=== PATIENT | male | born 1965 | race Caucasian/White ===

== ENCOUNTER 2016-09-18 06:49 | Inpatient (IN) | payer OTHER ==
[~2016-09-18] VITALS: Ht 162.6 cm; Wt 105.3 kg
[2016-09-18 10:06] VITALS: BP 130/76; RESP 20
[2016-09-18] MEDS ORDERED: ACETAMINOPHEN 650 MG SUPP PR PRN (11:00)
[2016-09-18] MEDS ORDERED: ACETAMINOPHEN 325 MG TAB PO PRN (11:00)
[2016-09-18] MEDS ORDERED: BISACODYL 10 MG SUPP PR PRN (11:00)
[2016-09-18] MEDS ORDERED: morphine 2 MG INJ IV PRN (11:00)
[2016-09-18] MEDS ORDERED: HYDROCODONE/APAP (5/325) TAB PO PRN ×2 (11:00)
[2016-09-18] MEDS ORDERED: NACL 0.9% 3 ML SYG IV SCH (11:00)
[2016-09-18] MEDS ORDERED: MAGNESIUM HYDROXIDE 30ML CUP PO PRN (11:00)
[2016-09-18] MEDS ORDERED: DOCUSATE SODIUM 100 MG CAP PO PRN (11:00)
--- NOTE | 2016-09-18 11:13 | HP ---
Date/Time of Note Date/Time of Note DATE: 09/18/16 TIME: 11:07 Assessment/Plan VTE Prophylaxis VTE Prophylaxis Intervention: SCD's Assessment/Plan Chief Complaint/Hosp Course Impression and plan 1. Cholelithiasis with suspected cholecystitis. Surgeon to be consulted. continue IV hydration and analgesics as needed 2. Diabetes. Follow-up on A1c. Will start on insulin regimen. 3. Obesity. Weight reduction advised 4. Liver cirrhosis. Monitor LFT. Patient to be followed up as outpatient for this issue. Admission process 40 minutes Discussed plan of care with Dr. Dunham Problems: HPI/ROS Admit Date/Time Admit Date/Time Sep 18, 2016 at 09:15 Hx of Present Illness This is a 51-year-old male with past medical history of diabetes who came to [facility] due to reports of abdominal pain. Patient initially brought to the [facility] but brought to [facility] due to insurance issues. According to the patient had been having abdominal pain for 3 days duration. Pain was more on right upper abdominal quadrant nonradiating. Denies any dysuria associated with it. Denies any nausea or vomiting. He does report he does have some pain on palpation of his right upper quadrant abdominal area. He denies any sick contacts. On further evaluation at the hospital he did have initial lab findings at [place] with noted no leukocytosis. He remained afebrile. CT scan of his abdomen did show findings suspicious for hepatic cirrhosis with irregular border of the liver and splenomegaly suspicious for portal hypertension. He also had slightly prominent retroperitoneal lymph nodes measuring up to 1.3 cm. Further abdominal ultrasound did show him to have gallstones with sludge as well as thickening of the gallbladder with findings suspicious for possible cholecystitis. Currently the patient remains alert and oriented. He does still report having some right abdominal pain more in upper quadrants. We will evaluate him for the aformentiond she is ROS 12 point review of systems obtained and entirely negative except as mentioned in history of present illness PMH/Family/Social Past Medical History Medical/surgical history 1. Diabetes Family History Significant Family History: no pertinent family hx Social History Alcohol Use: none Smoking Status: Light tobacco smoker Drug Use: none Exam/Review of Systems Vital Signs Vitals Vital Signs Date Time Temp Pulse Resp B/P Pulse Ox O2 Delivery O2 Flow Rate FiO2 09/18/16 10:06 97.6 77 20 130/76 96 Exam Exam General: In some mild distress secondary to abdominal pain Eyes: [pupils equal round, Anicteric sclera] Neck: Supple nontender, no JVD Cardiac: [S1, S2 auscultated, regular rhythm and rate] Pulmonary: [No coarse rhonchi or breathing auscultated] GI: Tender upon palpation on right upper abdominal quadrant. Bowel sounds active. Extremities: [No edema bilateral lower extremities] Skin: Psoriatic skin noted on bilateral lower extremities Neurologic: [Alert to person place and time and situation] Medications Medications Current Medications Piperacillin Sod/ Tazobactam Sod 100 ml @ 200 mls/hr Q8 IVPB ; Start 09/18/16 at 14:00; Status UNV Potassium Chloride/Dextrose/ Sod Cl (D5-1/2ns + KCl 20 Meq) 1,000 ml @ 80 mls/ hr [id number] IV ; Start 09/18/16 at 10:53; Status UNV Acetaminophen (Tylenol Tab) 650 mg Q6H PRN PO PAIN LEVEL 1-3 OR FEVER; Start at 11:00; Status UNV Acetaminophen (Tylenol Supp) 650 mg Q6H PRN [place] PAIN LEVEL 1-3 OR FEVER; Start 09/18/16 at 11:00; Status UNV Acetaminophen/ Hydrocodone Bitart ([place] (5/325)) 1 tab Q6H PRN PO MODERATE PAIN LEVEL 4-6; Start 09/18/16 at 11:00; Status UNV Acetaminophen/ Hydrocodone Bitart ([place] (5/325)) 2 tab Q6H PRN PO SEVERE PAIN LEVEL 7-10; Start 09/18/16 at 11:00; Status UNV Morphine Sulfate (morphine) 2 mg Q4H PRN IV SEVERE PAIN LEVEL 7-10; Start 09/18 at 11:00; Status UNV Docusate Sodium (Colace) 100 mg Q12H PRN PO CONSTIPATION; Start 09/18/16 at 11: 00; Status UNV Magnesium Hydroxide (Milk Of Mag) 30 ml DAILY PRN PO CONSTIPATION; Start at 11:00; Status UNV Bisacodyl (Dulcolax Supp) 10 mg DAILY PRN [place] CONSTIPATION; Start 09/18/16 at 11 :00; Status UNV Pantoprazole (Protonix Iv) 40 mg DAILY@06 IV ; Start 09/19/16 at 06:00; Status UNV BIBI MCGRATH Sep 18, 2016 11:13
[2016-09-18 12:01] LABS: BASOPHILS % 0.2 % (0.0-2.0); EOSINOPHILS % 0.9 % (0.0-7.0); HEMATOCRIT 39.7 % (42.0-52.0); HEMOGLOBIN 13.9 g/dl (14.0-18.0); LYMPHOCYTES % 17.4 % (15.0-51.0); MEAN CORPUSCULAR HEMOGLOBIN 32.9 pg (29.0-33.0); MEAN CORPUSCULAR HGB CONC 35.1 g/dl (32.0-37.0); MEAN CORPUSCULAR VOLUME 93.8 fl (82.0-101.0); MONOCYTE # 0.5 10^3/ul (0.3-0.9); MONOCYTES % 9.4 % (0.0-11.0); NEUTROPHIL # 4.1 10^3/ul (1.6-7.5); NEUTROPHILS % 72.1 % (39.0-77.0); PLATELET COUNT 80 10^3/UL (140-440); RED BLOOD COUNT 4.23 10^6/ul (4.70-6.10); RED CELL DISTRIBUTION WIDTH 14.1 % (11.5-14.5); UNCORRECTED WBC 5.7 10^3/ul (4.8-10.8); WHITE BLOOD COUNT 5.7 10^3/ul (4.8-10.8)
[2016-09-18 12:08] LABS: CONDITION 1
[2016-09-18] MEDS: D5W-0.45 NACL + KCL 20 MEQ 1,000 ML IV SCH ×2 (13:23→23:23)
[2016-09-18] MEDS: PANTOPRAZOLE 40 MG INJ IV SCH (13:37)
[2016-09-18] MEDS: PIPER-TAZO 3.375 GM IV (PMX) 100 ML IVPB SCH ×2 (13:37→21:14)
--- NOTE | 2016-09-18 14:06 | CONS ---
DATE OF ADMISSION: 09/18/2016 DATE OF CONSULTATION: 09/18/2016 REASON FOR CONSULTATION: Possible cholecystitis. HISTORY OF PRESENT ILLNESS: The patient is a 51-year-old diabetic male who was transferred here fro [facility] for insurance reasons. He presents with 3 days of right upper quadrant and ri ght flank abdominal pain. This is not associated with nausea or vomiting. The pain is not post-pra ndial. Imaging at [place] showed hepatic cirrhosis with splenomegaly suspicious for portal hyper tension. He had some edematous change in the right upper quadrant. The gallbladder showed a gallsto ne without pericholecystic fluid. He is admitted, and surgical consultations is requested for possi ble cholecystitis. PAST MEDICAL HISTORY: Patient has had no previous abdominal surgeries. Comorbid conditions include diabetes and morbid obesity. REVIEW OF SYSTEMS: HEAD, EARS, EYES, NOSE, THROAT: Unremarkable. LUNGS: No history of shortness of breath or pneumonia. CARDIAC: No history of chest pain, NH, or arrhythmia. ABDOMEN: As in the HPI. EXTREMITIES: Unremarkable. MEDICATIONS: Outpatient medications, none. ALLERGIES: NONE. SOCIAL HISTORY: Patient states he has not had alcohol in over 25 years. PHYSICAL EXAMINATION: GENERAL: The patient is a morbidly obese 51-year-old [place] speaking male, who is awake and alert, in no acute distress. HEENT: Within normal limits. Sclerae anicteric. LUNGS: Clear. HEART: Regular rhythm. ABDOMEN: Obese. There is some tenderness in the right lateral abdomen between the right upper quad rant and the right flank. There are no masses. There is a tiny umbilical hernia. EXTREMITIES: Unremarkable. LABORATORY DATA: Here shows a hematocrit of 39.7 with a white count of 5700. LFTs are pending. IMPRESSION: It does not appear that this patient has acute cholecystitis, but more likely portal hy pertension with cirrhosis and splenomegaly. PLAN: A HIDA scan has been ordered. GI consultation should be sought. I will follow with you. Fu rther recommendations will be based on the patient's further workup and clinical course. Dictated By: DEAN WISE/NTS Conf#: [id number] DID#: [id number]
[2016-09-18 20:09] VITALS: BP 142/66; RESP 16
[2016-09-19] MEDS: D5W-0.45 NACL + KCL 20 MEQ 1,000 ML IV SCH ×2 (02:40→18:08)
[2016-09-19] MEDS: PIPER-TAZO 3.375 GM IV (PMX) 100 ML IVPB SCH ×3 (06:04→21:36)
[2016-09-19] MEDS: PANTOPRAZOLE 40 MG INJ IV SCH (06:04)
[2016-09-19 06:06] LABS: POTASSIUM 4.4 mmol/L (3.5-5.1)
[2016-09-19 06:08] LABS: ALBUMIN/GLOBULIN RATIO 0.83; BILIRUBIN,INDIRECT 1.1 mg/dl (0-1.1); BILIRUBIN,TOTAL 1.1 mg/dl (0.2-1.3); CALCIUM 8.4 mg/dl (8.4-10.2); CREATININE 0.55 mg/dl (0.61-1.24); TOTAL PROTEIN 6.6 g/dl (6.1-8.1)
[2016-09-19 06:09] LABS: CHOL/HDL RATIO 3.8 RATIO; MAGNESIUM 1.7 mg/dl (1.7-2.5)
[2016-09-19 06:24] LABS: T3 UPTAKE 34.9 % (23.5-40.5)
[2016-09-19 06:38] LABS: THYROID STIMULATING HORMONE 0.649 MIU/L (0.465-4.680)
[2016-09-19 06:47] LABS: BASOPHILS % 0.2 % (0.0-2.0); EOSINOPHILS # 0.1 10^3/ul (0.0-0.5); EOSINOPHILS % 1.4 % (0.0-7.0); HEMATOCRIT 39.8 % (42.0-52.0); HEMOGLOBIN 13.8 g/dl (14.0-18.0); LYMPHOCYTES # 1.3 10^3/ul (0.8-2.9); LYMPHOCYTES % 19.8 % (15.0-51.0); MEAN CORPUSCULAR HEMOGLOBIN 32.9 pg (29.0-33.0); MEAN CORPUSCULAR HGB CONC 34.7 g/dl (32.0-37.0); MEAN CORPUSCULAR VOLUME 94.9 fl (82.0-101.0); MEAN PLATELET VOLUME 10.3 fl (7.4-10.4); MONOCYTE # 0.5 10^3/ul (0.3-0.9); MONOCYTES % 7.3 % (0.0-11.0); NEUTROPHIL # 4.7 10^3/ul (1.6-7.5); NEUTROPHILS % 71.3 % (39.0-77.0); PLATELET COUNT 94 10^3/UL (140-440); RED CELL DISTRIBUTION WIDTH 13.9 % (11.5-14.5); UNCORRECTED WBC 6.5 10^3/ul (4.8-10.8); WHITE BLOOD COUNT 6.5 10^3/ul (4.8-10.8)
[2016-09-19 06:52] LABS: CONDITION 1
[2016-09-19] MEDS ORDERED: GLUCAGON 1 MG INJ IM PRN (08:30)
[2016-09-19] MEDS ORDERED: GLUCOSE GEL 15 GRAM TUBE BUCCAL PRN (08:30)
[2016-09-19] MEDS ORDERED: DEXTROSE 50% 50 ML SYRINGE IV PRN ×2 (08:30)
[2016-09-19] MEDS ORDERED: GLUCOSE GEL 15 GRAM TUBE PO PRN ×2 (08:30)
[2016-09-19 10:00] VITALS: BP 120/77; PULSE 84; RESP 20
[2016-09-19] MEDS: INSULIN ASPART [NOVOLOG] 3 ML PEN SC SCH ×3 (12:15→21:00)
--- NOTE | 2016-09-19 15:16 | PN ---
Date/Time of Note Date/Time of Note DATE: 09/19/16 TIME: 15:10 Assessment/Plan VTE Prophylaxis VTE Prophylaxis Intervention: SCD's Lines/Catheters IV [facility]from [facility] Peripheral IV Urinary Cath still in place: No Assessment/Plan Chief Complaint/Hosp Course Impression and plan 1. Cholelithiasis with suspected cholecystitis. surgeon following. continue IV hydration and analgesics as needed. Await HIDA scan result 2. Diabetes. A1C: 8.6. cont insulin regimen 3. Obesity. Weight reduction advised 4. Liver cirrhosis. Monitor LFT. GI to follow Patient to be followed up as outpatient for this issue. DISPO/PLAN: plan for hida scan. follow up with results Discussed plan of care with Dr. Conrad Problems: Subjective 24 Hr Interval Summary Free Text/Dictation still reports having some right flank pain. Exam/Review of Systems Vital Signs Vitals Vital Signs Date Time Temp Pulse Resp B/P Pulse Ox O2 Delivery O2 Flow Rate FiO2 09/19/16 10:00 98.5 84 20 120/77 96 Room Air Intake and Output 09/18/16 09/18/16 09/19/16 15:00 23:00 07:00 Intake Total 100 ml 1480 ml Output Total 0 ml 200 ml Balance 100 ml 1280 ml Exam General: In some mild distress secondary to abdominal pain Eyes: [pupils equal round, Anicteric sclera] Neck: Supple nontender, no JVD Cardiac: [S1, S2 auscultated, regular rhythm and rate] Pulmonary: [No coarse rhonchi or breathing auscultated] GI: Tender upon palpation on right upper abdominal quadrant. Bowel sounds active. Extremities: [No edema bilateral lower extremities] Skin: Psoriatic skin noted on bilateral lower extremities Neurologic: [Alert to person place and time and situation] Results Result Diagram: 09/19/16 0506 09/19/16 0506 Results 24 hrs Laboratory Tests Test 09/19/16 05:06 09/19/16 12:05 Alanine Aminotransferase (ALT/SGPT) 47 Albumin 3.0 L Albumin/Globulin Ratio 0.83 Alkaline Phosphatase 170 H Anion Gap 13 Aspartate Amino Transf (AST/SGOT) 39 Basophils # 0.0 Basophils % 0.2 Blood Morphology Comment Blood Urea Nitrogen 8 Calcium Level 8.4 Carbon Dioxide Level 27 Chloride Level 104 Cholesterol Level 124 Cholesterol/HDL Ratio 3.8 Creatinine 0.55 L Direct Bilirubin 0.00 Eosinophils # 0.1 Eosinophils % 1.4 Free Thyroxine Index 2.93 Globulin 3.60 H Glucose Level 145 HDL Cholesterol 32 Hematocrit 39.8 L Hemoglobin 13.8 L Hemoglobin A1c 8.6 H Indirect Bilirubin 1.1 LDL Cholesterol, Calculated 73 Lymphocytes # 1.3 Lymphocytes % 19.8 Magnesium Level 1.7 Mean Corpuscular Hemoglobin 32.9 Mean Corpuscular Hemoglobin Concent 34.7 Mean Corpuscular Volume 94.9 Mean Platelet Volume 10.3 Monocytes # 0.5 Monocytes % 7.3 Neutrophils # 4.7 Neutrophils % 71.3 Nucleated Red Blood Cells # 0.0 Nucleated Red Blood Cells % 0.0 Platelet Count 94 L Potassium Level 4.4 Red Blood Count 4.20 L Red Cell Distribution Width 13.9 Sodium Level 140 Thyroid Stimulating Hormone (TSH) 0.649 Thyroxine (T4) 8.4 Total Bilirubin 1.1 Total Protein 6.6 Triglycerides Level 94 Triiodothyronine (T3) Uptake 34.9 White Blood Count 6.5 Bedside Glucose 116 Medications Medications Current Medications Piperacillin Sod/ Tazobactam Sod 100 ml @ 200 mls/hr Q8 IVPB Last administered on 09/19/16 06:04; Admin Dose 200 MLS/HR; Start 09/18/16 at 12:45 Potassium Chloride/Dextrose/ Sod Cl (D5-1/2ns + KCl 20 Meq) 1,000 ml @ 80 mls/ hr [id number] IV Last administered on 09/19/16 02:40; Admin Dose 80 MLS/HR; Start 09/18/16 at 10:53 Acetaminophen (Tylenol Tab) 650 mg Q6H PRN PO PAIN LEVEL 1-3 OR FEVER; Start at 11:00 Acetaminophen (Tylenol Supp) 650 mg Q6H PRN [place] PAIN LEVEL 1-3 OR FEVER; Start 09/18/16 at 11:00 Acetaminophen/ Hydrocodone Bitart ([place] (5/325)) 1 tab Q6H PRN PO MODERATE PAIN LEVEL 4-6; Start 09/18/16 at 11:00 Acetaminophen/ Hydrocodone Bitart ([place] (5/325)) 2 tab Q6H PRN PO SEVERE PAIN LEVEL 7-10; Start 09/18/16 at 11:00 Morphine Sulfate (morphine) 2 mg Q4H PRN IV SEVERE PAIN LEVEL 7-10; Start 09/18 at 11:00 Docusate Sodium (Colace) 100 mg Q12H PRN PO CONSTIPATION; Start 09/18/16 at 11: 00 Magnesium Hydroxide (Milk Of Mag) 30 ml DAILY PRN PO CONSTIPATION; Start at 11:00 Bisacodyl (Dulcolax Supp) 10 mg DAILY PRN [place] CONSTIPATION; Start 09/18/16 at 11 :00 Pantoprazole (Protonix Iv) 40 mg DAILY@06 IV Last administered on 09/19/16t 06: 04; Admin Dose 40 MG; Start 09/18/16 at 13:00 Diagnostic Test (Pha) (Accucheck) 1 ea 02 XX ; Start 09/20/16 at 02:00 Miscellaneous Information 1 ea NOTE XX ; Start 09/19/16 at 08:30 Glucose (Glutose) 15 gm Q15M PRN PO DECREASED GLUCOSE; Start 09/19/16 at 08:30 Glucose (Glutose) 22.5 gm Q15M PRN PO DECREASED GLUCOSE; Start 09/19/16 at 08: 30 Dextrose (D50w Syringe) 25 ml Q15M PRN IV DECREASED GLUCOSE; Start 09/19/16 at 08:30 Dextrose (D50w Syringe) 50 ml Q15M PRN IV DECREASED GLUCOSE; Start 09/19/16 at 08:30 Glucagon (Glucagen) 1 mg Q15M PRN IM DECREASED GLUCOSE; Start 09/19/16 at 08:30 Glucose (Glutose) 15 gm Q15M PRN BUCCAL DECREASED GLUCOSE; Start 09/19/16 at 08 :30 BIBI MCGRATH Sep 19, 2016 15:16
[2016-09-19 17:09] LABS: ADD UMIC NO; URINE BILIRUBIN (Dip) NEGATIVE (NEGATIVE); URINE BLOOD (Dip) NEGATIVE (NEGATIVE); URINE COLOR LT. YELLOW (YELLOW); URINE GLUCOSE (Dip) NEGATIVE (NEGATIVE); URINE KETONES (Dip) NEGATIVE (NEGATIVE); URINE LEUKOCYTE ESTERASE (Dip) NEGATIVE (NEGATIVE); URINE NITRITE (Dip) NEGATIVE (NEGATIVE); URINE TOTAL PROTEIN (Dip) NEGATIVE (NEGATIVE); URINE UROBILINOGEN (Dip) 4.0 E.U./dL (0.1-1.0)
--- NOTE | 2016-09-19 17:32 | RADRPT ---
PROCEDURE: Nuclear medicine hepatobiliary scan CLINICAL INDICATION: Right upper quadrant pain. TECHNIQUE: 8.3 mCi of technetium-99m Choletec was administered intravenously. Planar imaging of t he hepatobiliary system was performed. Delayed images were obtained. Images were reviewed on the h igh resolution PACS workstation. COMPARISON: None available FINDINGS: There is normal and homogeneous uptake throughout the hepatobiliary system. There is normal emptyin g of radiotracer into the biliary tract. The common bile duct is normal. The gallbladder is visual ized at 15 minutes. There is visualization of the small bowel at 35 minutes. IMPRESSION: 1. Negative hepatobiliary scan. There is normal filling of the gallbladder. 2. Patent common bile duct with normal visualization of the small bowel. RPTAT: HMJB .Rafael Ramirez MD, MD Date Time Electronically viewed and signed by .Rafael Ramirez MD, MD on 09/19/2016 17:31 .B/
--- NOTE | 2016-09-19 17:52 | PN ---
DATE: 09/19/2016 The patient is symptomatically improved. His white blood cell count is normal without left shift. HIDA scan has been completed and the results are pending. IMPRESSION: If HIDA scan negative the patient can be discharged with outpatient followup. Dictated By: DEAN WISE/SYDNEE Conf#: [id number] DID#: [id number]
--- NOTE | 2016-09-19 17:54 | CONS ---
Date/Time of Note Date/Time of Note DATE: 09/19/16 TIME: 17:45 Assessment/Plan Assessment/Plan Chief Complaint/Hosp Course Impression: 1. possible cirrhosis 2. gallstones, r/o CBD stone 3. cholecystitis Recommendations 1. check MRCP to r/o CBD stone. If no CBD stone then recommend cholecystectomy per surgery 2. MRCP can also assess liver contour 3. agree with HIDA scan but I do not see it ordered. I informed TELECOM NETWORK MANAGER Carl about this. 4. acute hepatitis panel to r/o viral hepatitis 5. Dr. Ovalles to resume care of this patient tomorrow. Problems: Consultation Date/Type/Reason Admit Date/Time Sep 18, 2016 at 09:15 Type of Consultation: GI Reason for Consultation r/o cirrhosis, r/o cbd stone, abdominal pain Hx of Present Illness 51-year-old male with past medical history of diabetes who is admittted to [facility] due to reports of abdominal pain. Patient initially brought to the [facility] but brought to [facility] due to insurance issues. According to the patient had been having abdominal pain for 3 days duration. Pain was more on right upper abdominal quadrant nonradiating. Denies any dysuria associated with it. Denies any nausea or vomiting. He does report he does have some pain on palpation of his right upper quadrant abdominal area. He denies any sick contacts. Reportedly as documetned by ROBINSON Nunez, he had CT scan of his abdomen did show findings suspicious for hepatic cirrhosis with irregular border of the liver and splenomegaly suspicious for portal hypertension. However, patient denied that he had CT scan done, only abdominal u/s. He also had slightly prominent retroperitoneal lymph nodes measuring up to 1.3 cm. Further abdominal ultrasound did show him to have gallstones with sludge as well as thickening of the gallbladder with findings suspicious for possible cholecystitis. No f, c, cp, sob. All point ROS administered, pertinent positives and negatives in HPI otherwise negative. Past Medical History Medical History: diabetes, gallstones Past Surgical History Past Surgical Hx: no surgical history Family History Significant Family History: no pertinent family hx Social History Alcohol Use: sober Smoking Status: Light tobacco smoker Drug Use: none Exam/Review of Systems Vital Signs Vitals Vital Signs Date Time Temp Pulse Resp B/P Pulse Ox O2 Delivery O2 Flow Rate FiO2 09/19/16 10:00 98.5 84 20 120/77 96 Room Air Intake and Output 09/18/16 09/18/16 09/19/16 15:00 23:00 07:00 Intake Total 100 ml 1480 ml Output Total 0 ml 200 ml Balance 100 ml 1280 ml Exam Constitutional: alert, oriented, well developed Psych: nl mood/affect, no complaints Head: atraumatic, normocephalic Eyes: EOMI, nl conjunctiva, nl lids, nl sclera ENMT: mucosa pink and moist, nl external ears & nose, nl lips & teeth, nl nasal mucosa & septum Neck: non-tender, supple Respiratory: clear to auscultation, normal air movement Cardiovascular: nl pulses, regular rate and rhythm Gastrointestinal: bowel sounds, non-tender, soft Musculoskeletal: nl extremities to inspection, nl gait and stance Neurological: nl mental status, nl speech, nl strength Results Result Diagram: 09/19/16 0506 09/19/16 0506 Results 24 hrs Laboratory Tests Test 09/19/16 05:06 09/19/16 12:05 09/19/16 16:45 09/19/16 17:13 Alanine Aminotransferase (ALT/SGPT) 47 Albumin 3.0 L Albumin/Globulin Ratio 0.83 Alkaline Phosphatase 170 H Anion Gap 13 Aspartate Amino Transf (AST/SGOT) 39 Basophils # 0.0 Basophils % 0.2 Blood Morphology Comment Blood Urea Nitrogen 8 Calcium Level 8.4 Carbon Dioxide Level 27 Chloride Level 104 Cholesterol Level 124 Cholesterol/HDL Ratio 3.8 Creatinine 0.55 L Direct Bilirubin 0.00 Eosinophils # 0.1 Eosinophils % 1.4 Free Thyroxine Index 2.93 Globulin 3.60 H Glucose Level 145 HDL Cholesterol 32 Hematocrit 39.8 L Hemoglobin 13.8 L Hemoglobin A1c 8.6 H Indirect Bilirubin 1.1 LDL Cholesterol, Calculated 73 Lymphocytes # 1.3 Lymphocytes % 19.8 Magnesium Level 1.7 Mean Corpuscular Hemoglobin 32.9 Mean Corpuscular Hemoglobin Concent 34.7 Mean Corpuscular Volume 94.9 Mean Platelet Volume 10.3 Monocytes # 0.5 Monocytes % 7.3 Neutrophils # 4.7 Neutrophils % 71.3 Nucleated Red Blood Cells # 0.0 Nucleated Red Blood Cells % 0.0 Platelet Count 94 L Potassium Level 4.4 Red Blood Count 4.20 L Red Cell Distribution Width 13.9 Sodium Level 140 Thyroid Stimulating Hormone (TSH) 0.649 Thyroxine (T4) 8.4 Total Bilirubin 1.1 Total Protein 6.6 Triglycerides Level 94 Triiodothyronine (T3) Uptake 34.9 White Blood Count 6.5 Bedside Glucose 116 103 Urine Bilirubin NEGATIVE Urine Clarity CLEAR Urine Color LT. YELLOW Urine Glucose NEGATIVE Urine Hemoglobin NEGATIVE Urine Ketones NEGATIVE Urine Leukocyte Esterase NEGATIVE Urine Nitrite NEGATIVE Urine Specific [place] 1.010 Urine Total Protein NEGATIVE Urine Urobilinogen 4.0 E.U./dL H Urine pH 7.0 Medications Medications Current Medications Piperacillin Sod/ Tazobactam Sod 100 ml @ 200 mls/hr Q8 IVPB Last administered on 09/19/16 16:03; Admin Dose 200 MLS/HR; Start 09/18/16 at 12:45 Potassium Chloride/Dextrose/ Sod Cl (D5-1/2ns + KCl 20 Meq) 1,000 ml @ 80 mls/ hr [id number] IV Last administered on 09/19/16 02:40; Admin Dose 80 MLS/HR; Start 09/18/16 at 10:53 Acetaminophen (Tylenol Tab) 650 mg Q6H PRN PO PAIN LEVEL 1-3 OR FEVER; Start at 11:00 Acetaminophen (Tylenol Supp) 650 mg Q6H PRN [place] PAIN LEVEL 1-3 OR FEVER; Start 09/18/16 at 11:00 Acetaminophen/ Hydrocodone Bitart ([place] (5/325)) 1 tab Q6H PRN PO MODERATE PAIN LEVEL 4-6; Start 09/18/16 at 11:00 Acetaminophen/ Hydrocodone Bitart ([place] (5/325)) 2 tab Q6H PRN PO SEVERE PAIN LEVEL 7-10; Start 09/18/16 at 11:00 Morphine Sulfate (morphine) 2 mg Q4H PRN IV SEVERE PAIN LEVEL 7-10; Start 09/18 at 11:00 Docusate Sodium (Colace) 100 mg Q12H PRN PO CONSTIPATION; Start 09/18/16 at 11: 00 Magnesium Hydroxide (Milk Of Mag) 30 ml DAILY PRN PO CONSTIPATION; Start at 11:00 Bisacodyl (Dulcolax Supp) 10 mg DAILY PRN [place] CONSTIPATION; Start 09/18/16 at 11 :00 Pantoprazole (Protonix Iv) 40 mg DAILY@06 IV Last administered on 09/19/16t 06: 04; Admin Dose 40 MG; Start 09/18/16 at 13:00 Diagnostic Test (Pha) (Accucheck) 1 ea 02 XX ; Start 09/20/16 at 02:00 Miscellaneous Information 1 ea NOTE XX ; Start 09/19/16 at 08:30 Glucose (Glutose) 15 gm Q15M PRN PO DECREASED GLUCOSE; Start 09/19/16 at 08:30 Glucose (Glutose) 22.5 gm Q15M PRN PO DECREASED GLUCOSE; Start 09/19/16 at 08: 30 Dextrose (D50w Syringe) 25 ml Q15M PRN IV DECREASED GLUCOSE; Start 09/19/16 at 08:30 Dextrose (D50w Syringe) 50 ml Q15M PRN IV DECREASED GLUCOSE; Start 09/19/16 at 08:30 Glucagon (Glucagen) 1 mg Q15M PRN IM DECREASED GLUCOSE; Start 09/19/16 at 08:30 Glucose (Glutose) 15 gm Q15M PRN BUCCAL DECREASED GLUCOSE; Start 09/19/16 at 08 :30 DONALD PRAJAPATI MD Sep 19, 2016 17:54
[2016-09-19 19:00] VITALS: BP 127/77; RESP 19
[2016-09-20] MEDS: D5W-0.45 NACL + KCL 20 MEQ 1,000 ML IV SCH ×2 (00:23→13:37)
[2016-09-20] MEDS: ACCUCHECK XX SCH (02:00)
[2016-09-20] MEDS: PIPER-TAZO 3.375 GM IV (PMX) 100 ML IVPB SCH ×3 (05:51→22:58)
[2016-09-20] MEDS: PANTOPRAZOLE 40 MG INJ IV SCH (05:51)
[2016-09-20 06:55] LABS: BASOPHILS % 0.3 % (0.0-2.0); EOSINOPHILS # 0.1 10^3/ul (0.0-0.5); EOSINOPHILS % 1.4 % (0.0-7.0); HEMATOCRIT 41.1 % (42.0-52.0); HEMOGLOBIN 14.4 g/dl (14.0-18.0); LYMPHOCYTES # 1.1 10^3/ul (0.8-2.9); LYMPHOCYTES % 19.4 % (15.0-51.0); MEAN CORPUSCULAR HEMOGLOBIN 33.1 pg (29.0-33.0); MEAN CORPUSCULAR HGB CONC 34.9 g/dl (32.0-37.0); MEAN CORPUSCULAR VOLUME 94.6 fl (82.0-101.0); MEAN PLATELET VOLUME 9.9 fl (7.4-10.4); MONOCYTE # 0.3 10^3/ul (0.3-0.9); NEUTROPHIL # 4.3 10^3/ul (1.6-7.5); NEUTROPHILS % 72.9 % (39.0-77.0); PLATELET COUNT 95 10^3/UL (140-440); RED BLOOD COUNT 4.34 10^6/ul (4.70-6.10); RED CELL DISTRIBUTION WIDTH 14.1 % (11.5-14.5); UNCORRECTED WBC 5.9 10^3/ul (4.8-10.8); WHITE BLOOD COUNT 5.9 10^3/ul (4.8-10.8)
[2016-09-20 07:02] LABS: POTASSIUM 4.1 mmol/L (3.5-5.1)
[2016-09-20 07:04] LABS: ALBUMIN/GLOBULIN RATIO 0.83; BILIRUBIN,INDIRECT 0.8 mg/dl (0-1.1); BILIRUBIN,TOTAL 0.8 mg/dl (0.2-1.3); CREATININE 0.54 mg/dl (0.61-1.24); TOTAL PROTEIN 6.6 g/dl (6.1-8.1)
[2016-09-20 07:05] LABS: CALCIUM 8.3 mg/dl (8.4-10.2)
[2016-09-20 07:16] LABS: CONDITION 1
[2016-09-20] MEDS: INSULIN ASPART [NOVOLOG] 3 ML PEN SC SCH ×4 (07:55→21:00)
[2016-09-20 08:46] VITALS: BP 141/86; RESP 16
--- NOTE | 2016-09-20 10:13 | PN ---
Date/Time of Note Date/Time of Note DATE: 09/20/16 TIME: 10:07 Assessment/Plan VTE Prophylaxis VTE Prophylaxis Intervention: SCD's Lines/Catheters [facility]from [facility]): Peripheral IV Urinary Cath still in place: No Assessment/Plan Assessment/Plan 1. Cholelithiasis with suspected cholecystitis. HIDA scan neg, Awaiting MRCP, GI and Gen Surg followin g 2. Diabetes. A1C: 8.6. cont insulin regimen 4. Liver cirrhosis. monitor LFT SCD for DVT Prophylaxis Subjective 24 Hr Interval Summary Free Text/Dictation HIDA scan negative, NPO for MRCP today, GI followin g Exam/Review of Systems Vital Signs Vitals Vital Signs Date Time Temp Pulse Resp B/P Pulse Ox O2 Delivery O2 Flow Rate FiO2 09/20/16 08:46 98.9 89 16 141/86 96 09/19/16 10:00 Room Air Intake and Output 09/19/16 09/19/16 09/20/16 15:00 23:00 07:00 Intake Total 550 ml 1060 ml Balance 550 ml 1060 ml Exam Constitutional: alert Psych: no complaints Head: normocephalic ENMT: nl external ears & nose Neck: supple Respiratory: clear to auscultation Gastrointestinal: soft Results Result Diagram: 09/20/16 0518 09/20/16 0548 Results 24 hrs Laboratory Tests Test 09/19/16 12:05 09/19/16 16:45 09/19/16 17:13 09/19/16 21:33 Bedside Glucose 116 103 128 Urine Bilirubin NEGATIVE Urine Clarity CLEAR Urine Color LT. YELLOW Urine Glucose NEGATIVE Urine Hemoglobin NEGATIVE Urine Ketones NEGATIVE Urine Leukocyte Esterase NEGATIVE Urine Nitrite NEGATIVE Urine Specific [place] 1.010 Urine Total Protein NEGATIVE Urine Urobilinogen 4.0 E.U./dL H Urine pH 7.0 Test 09/20/16 05:18 09/20/16 05:48 09/20/16 07:51 Basophils # 0.0 Basophils % 0.3 Blood Morphology Comment Eosinophils # 0.1 Eosinophils % 1.4 Hematocrit 41.1 L Hemoglobin 14.4 Lymphocytes # 1.1 Lymphocytes % 19.4 Mean Corpuscular Hemoglobin 33.1 H Mean Corpuscular Hemoglobin Concent 34.9 Mean Corpuscular Volume 94.6 Mean Platelet Volume 9.9 Monocytes # 0.3 Monocytes % 6.0 Neutrophils # 4.3 Neutrophils % 72.9 Nucleated Red Blood Cells # 0.0 Nucleated Red Blood Cells % 0.0 Platelet Count 95 L Red Blood Count 4.34 L Red Cell Distribution Width 14.1 White Blood Count 5.9 Alanine Aminotransferase (ALT/SGPT) 41 Albumin 3.0 L Albumin/Globulin Ratio 0.83 Alkaline Phosphatase 170 H Anion Gap 13 Aspartate Amino Transf (AST/SGOT) 42 Blood Urea Nitrogen 9 Calcium Level 8.3 L Carbon Dioxide Level 24 Chloride Level 104 Creatinine 0.54 L Direct Bilirubin 0.00 Globulin 3.60 H Glucose Level 135 Indirect Bilirubin 0.8 Potassium Level 4.1 Sodium Level 137 Total Bilirubin 0.8 Total Protein 6.6 Bedside Glucose 136 Medications Medications Current Medications Piperacillin Sod/ Tazobactam Sod 100 ml @ 200 mls/hr Q8 IVPB Last administered on 09/20/16 05:51; Admin Dose 200 MLS/HR; Start 09/18/16 at 12:45 Potassium Chloride/Dextrose/ Sod Cl (D5-1/2ns + KCl 20 Meq) 1,000 ml @ 80 mls/ hr [id number] IV Last administered on 09/19/16 18:08; Admin Dose 80 MLS/HR; Start 09/18/16 at 10:53 Acetaminophen (Tylenol Tab) 650 mg Q6H PRN PO PAIN LEVEL 1-3 OR FEVER; Start at 11:00 Acetaminophen (Tylenol Supp) 650 mg Q6H PRN [place] PAIN LEVEL 1-3 OR FEVER; Start 09/18/16 at 11:00 Acetaminophen/ Hydrocodone Bitart ([place] (5/325)) 1 tab Q6H PRN PO MODERATE PAIN LEVEL 4-6; Start 09/18/16 at 11:00 Acetaminophen/ Hydrocodone Bitart ([place] (5/325)) 2 tab Q6H PRN PO SEVERE PAIN LEVEL 7-10; Start 09/18/16 at 11:00 Morphine Sulfate (morphine) 2 mg Q4H PRN IV SEVERE PAIN LEVEL 7-10; Start 09/18 at 11:00 Docusate Sodium (Colace) 100 mg Q12H PRN PO CONSTIPATION; Start 09/18/16 at 11: 00 Magnesium Hydroxide (Milk Of Mag) 30 ml DAILY PRN PO CONSTIPATION; Start at 11:00 Bisacodyl (Dulcolax Supp) 10 mg DAILY PRN [place] CONSTIPATION; Start 09/18/16 at 11 :00 Pantoprazole (Protonix Iv) 40 mg DAILY@06 IV Last administered on 09/20/16t 05: 51; Admin Dose 40 MG; Start 09/18/16 at 13:00 Diagnostic Test (Pha) (Accucheck) 1 ea 02 XX ; Start 09/20/16 at 02:00 Miscellaneous Information 1 ea NOTE XX ; Start 09/19/16 at 08:30 Glucose (Glutose) 15 gm Q15M PRN PO DECREASED GLUCOSE; Start 09/19/16 at 08:30 Glucose (Glutose) 22.5 gm Q15M PRN PO DECREASED GLUCOSE; Start 09/19/16 at 08: 30 Dextrose (D50w Syringe) 25 ml Q15M PRN IV DECREASED GLUCOSE; Start 09/19/16 at 08:30 Dextrose (D50w Syringe) 50 ml Q15M PRN IV DECREASED GLUCOSE; Start 09/19/16 at 08:30 Glucagon (Glucagen) 1 mg Q15M PRN IM DECREASED GLUCOSE; Start 09/19/16 at 08:30 Glucose (Glutose) 15 gm Q15M PRN BUCCAL DECREASED GLUCOSE; Start 09/19/16 at 08 :30 DIPTI BORREGO MD Sep 20, 2016 10:12
--- NOTE | 2016-09-20 12:03 | PN ---
DATE: 09/20/2016 Patient is symptomatically improved and his pain scale is down to 3. HIDA scan was performed yester day and is entirely within normal limits. Abdominal examination is benign. IMPRESSION: Cholelithiasis without cholecystitis. Elective cholecystectomy in the setting of cirrh osis is contraindicated. PLAN: Awaiting MRCP and further GI evaluation. Based on the HIDA scan no further surgical interven tion is advised. Plan per GI. Dictated By: DEAN WISE/SYDNEE Conf#: [id number] DID#: [id number]
--- NOTE | 2016-09-20 12:26 | RADRPT ---
PROCEDURE: MRI abdomen without contrast; MRCP CLINICAL INDICATION: Abdominal pain TECHNIQUE: Multiplanar, multisequence imaging of the abdomen was obtained without contrast. Imagi ng includes axial and coronal T2 and T2 fat-saturated images In addition, a dedicated high T2 signal intensity MRCP images were obtained in multiple planes with 3-D reconstructions. COMPARISON: Nuclear medicine scan FINDINGS: Study is very limited secondary to significant central low signal secondary to artifact. This limit s the visualization of the central biliary ducts and of the common duct. Layering stone is seen in the gallbladder which demonstrate some mild gallbladder wall thickening adjacent fluid however this is indeterminate given the presence of mild ascites. There is no visible intrahepatic biliary ducta l dilatation. Portions of the common duct is seen which are diminutive with no evidence of obstruct emir changes. There are segments of the common duct are not visible on MRCP images. There is a lobular and from the appearance of the liver with heterogeneous signal intensity with no gross focal signal abnormality. Small lesions can be missed secondary to susceptibility artifact. There is splenomegaly present with partial visualization of upper abdominal varices. There likely v arices of the GE junction however these are not well visualized. The pancreas is mostly obscured. The kidneys are symmetric without hydronephrosis. The adrenal gla nds are grossly unremarkable. There is no evidence of bowel obstruction. Evaluation for lymphadenopathy is limited secondary to c entral signal. Degenerative changes are seen in the lumbar spine. The portal vein is enlarged with visible flow void. The aorta demonstrates mild tortuosity. RPTAT: AA IMPRESSION: Very limited study secondary to significant diminished central low signal due to artifact and this l imits the evaluation of the central biliary ducts with poor visualization of a portion of the common duct and limited visualization of the pancreas. A gallstone is seen in the gallbladder which has wall thickening and adjacent fluid however this is indeterminate and may be related gallbladder hydrops and third spacing of fluid given the normal nuc lear medicine study. Small nodular liver is seen with splenomegaly and intra-abdominal ascites along with an enlarged por les vein and the presence of likely varices and this is suggestive for cirrhosis and portal hyperten sd. Evaluation for masses is limited secondary to diminished signal. No evidence of bowel obstruction. RPTAT: AA .Khalid Javeri, MD, MD Date Time Electronically viewed and signed by .Danilo Phillips MD, MD on 09/20/2016 12:26 .J/
--- NOTE | 2016-09-20 16:24 | CONS ---
Date/Time of Note Date/Time of Note DATE: 09/20/16 TIME: 16:22 Assessment/Plan Assessment/Plan Additional Assessment/Plan 1. Liver cirrhosis * Elevated liver enzymes, acute hepatitis panel ordered 2. gallstones, r/o CBD stone * MRCP * Very limited study secondary to significant diminished central low signal due to artifact and this limits the evaluation of the central biliary ducts with poor visualization of a portion of the common duct and limited visualization of the pancreas. * A gallstone is seen in the gallbladder which has wall thickening and adjacent fluid however this is indeterminate and may be related gallbladder hydrops and third spacing of fluid given the normal nuclear medicine study. * Small nodular liver is seen with splenomegaly and intra-abdominal ascites along with an enlarged portal vein and the presence of likely varices and this is suggestive for cirrhosis and portal hypertension * Trend labs 3. cholecystitis * Per surgery note, cholecystectomy not planned Further recommendations pending clinical course Patient seen in collaboration with Dr. Ovalles Consultation Date/Type/Reason Admit Date/Time Sep 18, 2016 at 09:15 Initial Consult Date Type of Consultation: GI 24 HR Interval Summary Free Text/Dictation Abdominal pain improving No plan for cholecystectomy Trial of clear diet We will advance as tolerated Exam/Review of Systems Vital Signs Vitals Vital Signs Date Time Temp Pulse Resp B/P Pulse Ox O2 Delivery O2 Flow Rate FiO2 09/20/16 08:46 98.9 89 16 141/86 96 09/19/16 10:00 Room Air Intake and Output 09/19/16 09/19/16 09/20/16 15:00 23:00 07:00 Intake Total 550 ml 1060 ml Balance 550 ml 1060 ml Exam Constitutional: alert, oriented, well developed Psych: nl mood/affect, no complaints Head: atraumatic, normocephalic Eyes: EOMI, nl conjunctiva, nl lids, nl sclera ENMT: mucosa pink and moist, nl external ears & nose, nl lips & teeth, nl nasal mucosa & septum Neck: non-tender, supple Respiratory: clear to auscultation, normal air movement Cardiovascular: nl pulses, regular rate and rhythm Gastrointestinal: bowel sounds, non-tender, soft Musculoskeletal: nl extremities to inspection, nl gait and stance Neurological: nl mental status, nl speech, nl strength Results Result Diagram: 09/20/16 0518 09/20/16 0548 Results 24 hrs Laboratory Tests Test 09/19/16 16:45 09/19/16 17:13 09/19/16 21:33 09/20/16 05:18 Urine Bilirubin NEGATIVE Urine Clarity CLEAR Urine Color LT. YELLOW Urine Glucose NEGATIVE Urine Hemoglobin NEGATIVE Urine Ketones NEGATIVE Urine Leukocyte Esterase NEGATIVE Urine Nitrite NEGATIVE Urine Specific [place] 1.010 Urine Total Protein NEGATIVE Urine Urobilinogen 4.0 E.U./dL H Urine pH 7.0 Bedside Glucose 103 128 Basophils # 0.0 Basophils % 0.3 Blood Morphology Comment Eosinophils # 0.1 Eosinophils % 1.4 Hematocrit 41.1 L Hemoglobin 14.4 Lymphocytes # 1.1 Lymphocytes % 19.4 Mean Corpuscular Hemoglobin 33.1 H Mean Corpuscular Hemoglobin Concent 34.9 Mean Corpuscular Volume 94.6 Mean Platelet Volume 9.9 Monocytes # 0.3 Monocytes % 6.0 Neutrophils # 4.3 Neutrophils % 72.9 Nucleated Red Blood Cells # 0.0 Nucleated Red Blood Cells % 0.0 Platelet Count 95 L Red Blood Count 4.34 L Red Cell Distribution Width 14.1 White Blood Count 5.9 Test 09/20/16 05:48 09/20/16 07:51 09/20/16 12:14 Alanine Aminotransferase (ALT/SGPT) 41 Albumin 3.0 L Albumin/Globulin Ratio 0.83 Alkaline Phosphatase 170 H Anion Gap 13 Aspartate Amino Transf (AST/SGOT) 42 Blood Urea Nitrogen 9 Calcium Level 8.3 L Carbon Dioxide Level 24 Chloride Level 104 Creatinine 0.54 L Direct Bilirubin 0.00 Globulin 3.60 H Glucose Level 135 Indirect Bilirubin 0.8 Potassium Level 4.1 Sodium Level 137 Total Bilirubin 0.8 Total Protein 6.6 Bedside Glucose 136 107 Medications Medications Current Medications Piperacillin Sod/ Tazobactam Sod 100 ml @ 200 mls/hr Q8 IVPB Last administered on 09/20/16 13:36; Admin Dose 200 MLS/HR; Start 09/18/16 at 12:45 Potassium Chloride/Dextrose/ Sod Cl (D5-1/2ns + KCl 20 Meq) 1,000 ml @ 80 mls/ hr [id number] IV Last administered on 09/20/16 13:37; Admin Dose 80 MLS/HR; Start 09/18/16 at 10:53 Acetaminophen (Tylenol Tab) 650 mg Q6H PRN PO PAIN LEVEL 1-3 OR FEVER; Start at 11:00 Acetaminophen (Tylenol Supp) 650 mg Q6H PRN [place] PAIN LEVEL 1-3 OR FEVER; Start 09/18/16 at 11:00 Acetaminophen/ Hydrocodone Bitart ([place] (5/325)) 1 tab Q6H PRN PO MODERATE PAIN LEVEL 4-6; Start 09/18/16 at 11:00 Acetaminophen/ Hydrocodone Bitart ([place] (5/325)) 2 tab Q6H PRN PO SEVERE PAIN LEVEL 7-10; Start 09/18/16 at 11:00 Morphine Sulfate (morphine) 2 mg Q4H PRN IV SEVERE PAIN LEVEL 7-10; Start 09/18 at 11:00 Docusate Sodium (Colace) 100 mg Q12H PRN PO CONSTIPATION; Start 09/18/16 at 11: 00 Magnesium Hydroxide (Milk Of Mag) 30 ml DAILY PRN PO CONSTIPATION; Start at 11:00 Bisacodyl (Dulcolax Supp) 10 mg DAILY PRN [place] CONSTIPATION; Start 09/18/16 at 11 :00 Pantoprazole (Protonix Iv) 40 mg DAILY@06 IV Last administered on 09/20/16t 05: 51; Admin Dose 40 MG; Start 09/18/16 at 13:00 Diagnostic Test (Pha) (Accucheck) 1 ea 02 XX ; Start 09/20/16 at 02:00 Miscellaneous Information 1 ea NOTE XX ; Start 09/19/16 at 08:30 Glucose (Glutose) 15 gm Q15M PRN PO DECREASED GLUCOSE; Start 09/19/16 at 08:30 Glucose (Glutose) 22.5 gm Q15M PRN PO DECREASED GLUCOSE; Start 09/19/16 at 08: 30 Dextrose (D50w Syringe) 25 ml Q15M PRN IV DECREASED GLUCOSE; Start 09/19/16 at 08:30 Dextrose (D50w Syringe) 50 ml Q15M PRN IV DECREASED GLUCOSE; Start 09/19/16 at 08:30 Glucagon (Glucagen) 1 mg Q15M PRN IM DECREASED GLUCOSE; Start 09/19/16 at 08:30 Glucose (Glutose) 15 gm Q15M PRN BUCCAL DECREASED GLUCOSE; Start 09/19/16 at 08 :30 PEDRO GLEZ Sep 20, 2016 16:24
[2016-09-20 16:29] LABS: HAAIG REFLEX REFLEX FILED
[2016-09-20 17:31] LABS: HEPATITIS B CORE ANTIBODY NEGATIVE (NEGATIVE)
[2016-09-20 21:16] VITALS: BP 140/73; RESP 18
[2016-09-21] MEDS: ACCUCHECK XX SCH (02:00)
[2016-09-21] MEDS: D5W-0.45 NACL + KCL 20 MEQ 1,000 ML IV SCH (02:40)
[2016-09-21] MEDS: PANTOPRAZOLE 40 MG INJ IV SCH (06:17)
[2016-09-21] MEDS: PIPER-TAZO 3.375 GM IV (PMX) 100 ML IVPB SCH (06:17)
[2016-09-21 07:11] LABS: BILIRUBIN,INDIRECT 1.3 mg/dl (0-1.1); BILIRUBIN,TOTAL 1.3 mg/dl (0.2-1.3); CREATININE 0.68 mg/dl (0.61-1.24)
[2016-09-21 07:12] LABS: ALBUMIN/GLOBULIN RATIO 0.83; CALCIUM 8.1 mg/dl (8.4-10.2); TOTAL PROTEIN 6.6 g/dl (6.1-8.1)
[2016-09-21] MEDS: INSULIN ASPART [NOVOLOG] 3 ML PEN SC SCH ×2 (07:55→12:24)
[2016-09-21 09:00] VITALS: BP 131/77; RESP 18
[2016-09-21 09:41] LABS: BASOPHILS % 0.4 % (0.0-2.0); EOSINOPHILS # 0.1 10^3/ul (0.0-0.5); EOSINOPHILS % 1.5 % (0.0-7.0); HEMATOCRIT 39.2 % (42.0-52.0); HEMOGLOBIN 13.8 g/dl (14.0-18.0); LYMPHOCYTES # 1.5 10^3/ul (0.8-2.9); LYMPHOCYTES % 24.4 % (15.0-51.0); MEAN CORPUSCULAR HEMOGLOBIN 33.6 pg (29.0-33.0); MEAN CORPUSCULAR HGB CONC 35.1 g/dl (32.0-37.0); MEAN CORPUSCULAR VOLUME 95.8 fl (82.0-101.0); MEAN PLATELET VOLUME 10.1 fl (7.4-10.4); MONOCYTE # 0.6 10^3/ul (0.3-0.9); MONOCYTES % 10.4 % (0.0-11.0); NEUTROPHIL # 3.9 10^3/ul (1.6-7.5); NEUTROPHILS % 63.3 % (39.0-77.0); PLATELET COUNT 114 10^3/UL (140-440); RED BLOOD COUNT 4.09 10^6/ul (4.70-6.10); RED CELL DISTRIBUTION WIDTH 14.1 % (11.5-14.5); UNCORRECTED WBC 6.2 10^3/ul (4.8-10.8); WHITE BLOOD COUNT 6.2 10^3/ul (4.8-10.8)
[2016-09-21 09:43] LABS: CONDITION 1
--- NOTE | 2016-09-21 10:17 | PN ---
Date/Time of Note Date/Time of Note DATE: 09/21/16 TIME: 10:16 Assessment/Plan VTE Prophylaxis VTE Prophylaxis Intervention: SCD's Lines/Catheters IV [facility]from [facility] Peripheral IV Urinary Cath still in place: No Assessment/Plan Assessment/Plan 1. Cholelithiasis with suspected cholecystitis. HIDA scan neg, MRCP negative. 2. Diabetes. A1C: 8.6. cont insulin regimen 4. Liver cirrhosis with portal hypertensoin . monitor LFT SCD for DVT Prophylaxis possibel d/c home today Subjective 24 Hr Interval Summary Free Text/Dictation MRCP negative, HIDA scan neg , tolerating po diet well Exam/Review of Systems Vital Signs Vitals Vital Signs Date Time Temp Pulse Resp B/P Pulse Ox O2 Delivery O2 Flow Rate FiO2 09/21/16 09:00 98.7 18 131/77 97 09/20/16 21:16 69 09/19/16 10:00 Room Air Intake and Output 09/20/16 09/20/16 09/21/16 15:00 23:00 07:00 Intake Total 40 ml 1170 ml 1150 ml Output Total 700 ml 200 ml Balance -660 ml 1170 ml 950 ml Exam Constitutional: alert Psych: no complaints Head: normocephalic ENMT: nl external ears & nose Neck: supple Respiratory: clear to auscultation Gastrointestinal: soft Results Result Diagram: 09/21/16 0535 09/21/16 0535 Results 24 hrs Laboratory Tests Test 09/20/16 12:14 09/20/16 16:29 09/20/16 17:08 09/20/16 22:05 Bedside Glucose 107 148 124 Hepatitis A IgM Antibody NON-REACTIVE Test 09/21/16 05:35 09/21/16 07:47 Alanine Aminotransferase (ALT/SGPT) 48 Albumin 3.0 L Albumin/Globulin Ratio 0.83 Alkaline Phosphatase 207 H Amylase Level 58 Anion Gap 13 Aspartate Amino Transf (AST/SGOT) 45 Basophils # 0.0 Basophils % 0.4 Blood Urea Nitrogen 9 Calcium Level 8.1 L Carbon Dioxide Level 26 Chloride Level 102 Creatinine 0.68 Direct Bilirubin 0.00 Eosinophils # 0.1 Eosinophils % 1.5 Globulin 3.60 H Glucose Level 129 Hematocrit 39.2 L Hemoglobin 13.8 L Indirect Bilirubin 1.3 H Lipase 266 Lymphocytes # 1.5 Lymphocytes % 24.4 Mean Corpuscular Hemoglobin 33.6 H Mean Corpuscular Hemoglobin Concent 35.1 Mean Corpuscular Volume 95.8 Mean Platelet Volume 10.1 Monocytes # 0.6 Monocytes % 10.4 Neutrophils # 3.9 Neutrophils % 63.3 Nucleated Red Blood Cells # 0.0 Nucleated Red Blood Cells % 0.0 Platelet Count 114 L Potassium Level 4.0 Red Blood Count 4.09 L Red Cell Distribution Width 14.1 Sodium Level 137 Total Bilirubin 0.0 L Total Protein 6.6 White Blood Count 6.2 Bedside Glucose 126 Medications Medications Current Medications Piperacillin Sod/ Tazobactam Sod 100 ml @ 200 mls/hr Q8 IVPB Last administered on 09/21/16 06:17; Admin Dose 200 MLS/HR; Start 09/18/16 at 12:45 Potassium Chloride/Dextrose/ Sod Cl (D5-1/2ns + KCl 20 Meq) 1,000 ml @ 80 mls/ hr [id number] IV Last administered on 09/21/16 02:40; Admin Dose 80 MLS/HR; Start 09/18/16 at 10:53 Acetaminophen (Tylenol Tab) 650 mg Q6H PRN PO PAIN LEVEL 1-3 OR FEVER; Start at 11:00 Acetaminophen (Tylenol Supp) 650 mg Q6H PRN [place] PAIN LEVEL 1-3 OR FEVER; Start 09/18/16 at 11:00 Acetaminophen/ Hydrocodone Bitart ([place] (5/325)) 1 tab Q6H PRN PO MODERATE PAIN LEVEL 4-6; Start 09/18/16 at 11:00 Acetaminophen/ Hydrocodone Bitart ([place] (5/325)) 2 tab Q6H PRN PO SEVERE PAIN LEVEL 7-10; Start 09/18/16 at 11:00 Morphine Sulfate (morphine) 2 mg Q4H PRN IV SEVERE PAIN LEVEL 7-10; Start 09/18 at 11:00 Docusate Sodium (Colace) 100 mg Q12H PRN PO CONSTIPATION; Start 09/18/16 at 11: 00 Magnesium Hydroxide (Milk Of Mag) 30 ml DAILY PRN PO CONSTIPATION; Start at 11:00 Bisacodyl (Dulcolax Supp) 10 mg DAILY PRN [place] CONSTIPATION; Start 09/18/16 at 11 :00 Pantoprazole (Protonix Iv) 40 mg DAILY@06 IV Last administered on 09/21/16t 06: 17; Admin Dose 40 MG; Start 09/18/16 at 13:00 Diagnostic Test (Pha) (Accucheck) 1 ea 02 XX ; Start 09/20/16 at 02:00 Miscellaneous Information 1 ea NOTE XX ; Start 09/19/16 at 08:30 Glucose (Glutose) 15 gm Q15M PRN PO DECREASED GLUCOSE; Start 09/19/16 at 08:30 Glucose (Glutose) 22.5 gm Q15M PRN PO DECREASED GLUCOSE; Start 09/19/16 at 08: 30 Dextrose (D50w Syringe) 25 ml Q15M PRN IV DECREASED GLUCOSE; Start 09/19/16 at 08:30 Dextrose (D50w Syringe) 50 ml Q15M PRN IV DECREASED GLUCOSE; Start 09/19/16 at 08:30 Glucagon (Glucagen) 1 mg Q15M PRN IM DECREASED GLUCOSE; Start 09/19/16 at 08:30 Glucose (Glutose) 15 gm Q15M PRN BUCCAL DECREASED GLUCOSE; Start 09/19/16 at 08 :30 DIPTI BORREGO MD Sep 21, 2016 10:17
--- NOTE | 2016-09-21 10:19 | PDOCDIS ---
Discharge Instructions CONDITION Patient Condition: Good HOME CARE INSTRUCTIONS: Special Diet: low satl, low fat diet ACTIVITY: Activity Restrictions: Slowly Increase Activity Rest between Activity Avoid heavy lifting Avoid Heavy Housework FOLLOW UP/APPOINTMENTS Appointments follow up with his own PMD [facility] Insurance in 1-2 week DIPTI BORREGO MD Sep 21, 2016 10:19
[2016-09-21] MEDS ORDERED: ACET500C5 PO (10:21)
[2016-09-21] MEDS ORDERED: METO10TA92 PO (10:21)
[2016-09-21] MEDS ORDERED: OMEP20CA16 PO (10:21)
--- NOTE | 2016-09-21 21:30 | DS ---
DATE OF ADMISSION: 09/18/2016 DATE OF DISCHARGE: 09/21/2016 FINAL DISCHARGE DIAGNOSES: 1. Acute biliary colic secondary to cholelithiasis. 2. Liver cirrhosis with portal hypertension. 3. Diabetes mellitus, new onset. 4. Intractable abdominal pain secondary to acute biliary colic secondary to cholelithiasis. CONSULTATIONS DONE DURING THIS HOSPITALIZATION: 1. Gastroenterology consultation, Dr. Aaron Lr. 2. General surgery consult, Dr. Devaughn Rivera. HOSPITAL COURSE: This is a 51-year-old male who gives no significant past medical history on admiss ion except the use of alcohol and history of fatty liver who presented with a complaint of right upp er quadrant abdominal pain, nausea, vomiting. The patient was not able to tolerate any p.o. diet. He had an initial ultrasound abdomen done in the emergency room which was suspicious for cholelithia sis and biliary colic, rule out cholecystitis. The patient subsequently had a general surgery consu ltation done by Dr. Devaughn Rivera and had a HIDA scan done which was negative for any acute cholecys titis. He remained hemodynamically stable. The patient was subsequently seen by GI. Patient had [employer] done which was also negative for any common bile duct stone. The patient remained symptom free. He was started on a diet. He was tolerating a diet and his pain was controlled at the time of the discharge. He gets discharged home with a prescription of Tylenol for pain control. He is noted t o have fatty liver with liver cirrhosis and portal hypertension. He gives a history of alcohol abus e, very remotely. DISPOSITION: To home. DISCHARGE CONDITION: Stable and improved compared to admission. DISCHARGE ACTIVITIES: As tolerated, slowly resume to the normal baseline activity. DISCHARGE DIET: Low fat, low sodium diet. DISCHARGE MEDICATIONS: As per medical reconciliation. DISCHARGE FOLLOWUP AND INSTRUCTIONS: The patient is to follow with his own primary care doctor [facility] his O insurance 1 to 2 weeks after discharge. He has been explained about the discharge plan and followup instructions. He understood and verbalized understanding. Dictated By: DIPTI BORREGO MD, KP/SYDNEE Conf#: [id number] DID#: [id number]
== END 2016-09-21 12:55 | disposition home or self-care (01) | DRG 445 ==
LOC: MS2 09:15
PROVIDERS: ADMIT Internal Medicine; ATTEND Internal Medicine
DX: K80.20 Calculus of gallbladder without cholecystitis without obstruction (principal); K76.6 Portal hypertension; K74.60 Unspecified cirrhosis of liver; E11.9 Type 2 diabetes mellitus without complications; E66.9 Obesity, unspecified; Z68.39 Body mass index [BMI] 39.0-39.9, adult
CPT/HCPCS: 74181; 78226; 80053; 80061; 81003; 82150; 82247; 82248; 82962; 83036; 83690; 83735; 84436; 84443; 84479; 85025; 86704; 86709; 86803; 87340; A9537; C9113; J1815; J2543; J3480

== ENCOUNTER 2017-06-14 13:04 | Day surgery (SDC) | payer OTHER ==
[~2017-06-14] VITALS: Ht 162.6 cm; Wt 107.0 kg
[~2017-06-14 13:04] MED LIST: ACET500C5 PO; METO10TA92 PO; OMEP20CA16 PO
[2017-06-14 14:09] VITALS: Ht 162.6 cm; Wt 107.0 kg
[2017-06-14] MEDS ORDERED: METF500T4 PO (14:13)
[2017-06-14] MEDS ORDERED: MIDAZOLAM 1 MG/ML 2 ML INJ ONE (15:34)
[2017-06-14] MEDS ORDERED: PROPOFOL 20 ML ONE (15:34)
[2017-06-14] MEDS ORDERED: FENTAnyl 50 MCG/ML VIAL ONE (15:34)
[2017-06-14 15:57] VITALS: BP 137/76; PULSE 75; RESP 18
--- NOTE | 2017-06-14 16:10 | OPPN ---
Date/Time of Note Date/Time of Note DATE: 06/14/17 TIME: 16:06 Proc Note GI Procedure Date 06/14/17 Indication: other (Surveillance esophageal varices) Pre-procedure Diagnosis Surveillance esophageal varices Post-procedure Diagnosis Impression: Grade III/IV after general varices. Post endoscopic variceal ligation 6 Portal gastropathy. Rule out H. pylori infection. Biopsies obtained Plan: Omeprazole 40 mg daily Review pathology Follow-up EGD possible banding in 3 months . Procedure Performed: Endoscopy (With endoscopic variceal ligation. Endoscopy with biopsies) Surgeon NEGRO CARBAJAL MD See signature line Rn Medical Surgical none Anesthesia Type: MAC Anesthesiologist: AUGUSTA TAVARES MD Tourniquet Time none EBL none Transfusion required none Biopsy 1: Gastric antrum/rule out H. pylori infection Grafts/Implants Endoscopic variceal ligation Tubes/Drains none Complication(s) none Disposition: home Procedure Description Preoperative Diagnosis: After informed consent, with the patient/relatives understanding the procedure, its indications, potential risks and complications, including but not limited to : allergic reaction, bleeding, perforation or infection, and after all pertinent questions were answered to the patients satisfaction, the patient/ relatives signed witnessed informed consent. Following this, premedication was administered slowly IV push under careful cardiovascular and respiratory monitoring with pulse oximetry, automatic blood pressure, and gun club manager. Once the sedative effect was achieved the patient was place in the left lateral decubitus, the panendoscope was introduced and advanced under visual control. Careful examination of the upper gastrointestinal tract, both on insertion as well as withdrawal of the instrument disclosing the following findings: ESOPHAGUS: the mucosa of the entire esophagus was carefully examined and showed the following findings: there are grade III/IV esophageal varices. Endoscopic variceal ligation 6 was applied upon completion of examination. Otherwise the mucosa appears within normal limits. There is no evidence of esophagitis, neoplasm, or stricture. No Hiatal Hernia identified. STOMACH: Upon entrance to the stomach air was insufflated, the gastric ahn distended normally. The mucosa of the fundus, body and antrum of the stomach was carefully examined both head-on and on retroflexion, and showed the following findings: There is moderate erythema and edema as well as friability of the mucosa. Biopsies were obtained to rule out H. pylori infection. Otherwise the mucosa appears within normal limits with no abnormalities. There is no evidence of ulcers or neoplasm. PYLORUS: The pylorus was carefully examined and showed the following findings: the pylorus appears patent and within normal limits, with no evidence of gastric outlet obstruction. DUODENUM: The duodenal mucosa was carefully examined in the duodenal bulb as well as the second portion of the duodenum and showed the following findings: the mucosa appears unremarkable with no evidence of duodenitis, ulcer or neoplasm. Copies To: CC: NEGRO CARBAJAL MD, MORDO MD Jun 14, 2017 16:10
== END 2017-06-14 17:01 | disposition home or self-care (01) ==
LOC: GIL 13:04
PROVIDERS: ATTEND Internal Medicine Gastroenterology
DX: K29.30 Chronic superficial gastritis without bleeding (principal); I85.00 Esophageal varices without bleeding; K76.6 Portal hypertension; K31.89 Other diseases of stomach and duodenum; E11.9 Type 2 diabetes mellitus without complications
CPT/HCPCS: 43239; 43244; 82962; 88305; 88312; J2250; J3010; Z7610

== ENCOUNTER 2017-09-08 19:44 | Inpatient (IN) | END 2017-09-11 19:05 | disposition home or self-care (01) | DRG 432 ==

== ENCOUNTER 2017-09-15 14:19 | Outpatient (CLI) | END 2017-09-15 15:53 | disposition home or self-care (01) ==

== ENCOUNTER → 2017-09-28 | Outpatient (CLI) | END | disposition home or self-care (01) ==

== ENCOUNTER 2019-05-28 18:38 | Inpatient (IN) | payer OTHER ==
[~2019-05-28] VITALS: Ht 165.1 cm; Wt 101.0 kg
[~2019-05-28 18:38] MED LIST changes: -ACET500C5 PO; +CHOL100062 PO; +FER325 PO; +GLIP10TA14 PO; +LAS20 PO; +METF100010 ORAL; -METO10TA92 PO; +MTF1000T PO; -OMEP20CA16 PO; +PANT40TA3 PO; +PANT40TA4 PO; +PROP10TA6 PO; +SITA100T11 PO
[2019-05-28] MEDS ORDERED: PANTOPRAZOLE IV 80 MG in SOD CHLORIDE 0.9% 100 ML IVPB STA (19:51)
[2019-05-28] MEDS ORDERED: SOD CHLORIDE 0.9% 1,000 ML IV STA (19:51)
[2019-05-28] MEDS ORDERED: PANTOPRAZOLE IV 80 MG in SOD CHLORIDE 0.9% 100 ML IV STA (19:51)
[2019-05-28] MEDS ORDERED: OCTREOTIDE 500 MCG in SOD CHLORIDE 0.9% 49 ML IV STA (20:02)
[2019-05-28] MEDS ORDERED: OCTREOTIDE 50 MCG in SOD CHLORIDE 0.9% 25 ML IVPB STA (20:02)
[2019-05-28] MEDS ORDERED: ONDANSETRON 4 MG INJ IV STA (20:18)
[2019-05-28] MEDS ORDERED: SOD CHLORIDE 0.9% 1,000 ML IV SCH (22:38)
[2019-05-28] MEDS ORDERED: ACETAMINOPHEN 325 MG TAB PO PRN (23:00)
[2019-05-28] MEDS ORDERED: ONDANSETRON 4 MG INJ IV PRN (23:00)
[2019-05-29 01:08] VITALS: Ht 165.1 cm; Wt 101.0 kg
[2019-05-29 03:41] VITALS: BP 113/59; PULSE 81; RESP 16
[2019-05-29] MEDS ORDERED: GLUCOSE GEL 15 GRAM TUBE BUCCAL PRN (05:00)
[2019-05-29] MEDS ORDERED: GLUCAGON 1 MG INJ IM PRN (05:00)
[2019-05-29] MEDS ORDERED: GLUCOSE GEL 15 GRAM TUBE PO PRN ×2 (05:00)
[2019-05-29] MEDS: INSULIN ASPART [NOVOLOG] 3 ML PEN SC SCH ×5 (05:00→20:20)
[2019-05-29] MEDS ORDERED: DEXTROSE 50% 50 ML SYRINGE IV PRN ×2 (05:00)
[2019-05-29] MEDS: PANTOPRAZOLE 40 MG INJ IV SCH ×2 (06:20→17:45)
[2019-05-29 07:49] VITALS: BP 136/66; PULSE 81; RESP 20
[2019-05-29 11:38] VITALS: BP 119/68; PULSE 92; RESP 20
[2019-05-29] MEDS: OCTREOTIDE 500 MCG in DEXTROSE 5% 49 ML IV SCH (13:53)
[2019-05-29 15:33] VITALS: BP 133/63; PULSE 90; RESP 20
[2019-05-29 19:14] VITALS: BP 121/66; PULSE 96; RESP 20
[2019-05-30] VITALS (10 sets, daily range): BP systolic 118–158; BP diastolic 65–84; PULSE 71–84; RESP 12–27
[2019-05-30] MEDS: INSULIN ASPART [NOVOLOG] 3 ML PEN SC SCH ×6 (01:00→21:00)
[2019-05-30] MEDS: ACCU-CHEK XX SCH (01:24)
[2019-05-30] MEDS: PANTOPRAZOLE 40 MG INJ IV SCH ×2 (05:23→18:33)
[2019-05-30] MEDS: OCTREOTIDE 500 MCG in DEXTROSE 5% 49 ML IV SCH (10:47)
[2019-05-30] MEDS ORDERED: LIDOCAINE 100 MG SYRINGE ONE (17:13)
[2019-05-30] MEDS ORDERED: PROPOFOL 40 ML ONE (17:13)
[2019-05-30] MEDS ORDERED: FENTAnyl 50 MCG/ML VIAL ONE (17:14)
[2019-05-30] MEDS ORDERED: morphine 2 MG INJ IV PRN (21:00)
[2019-05-31] MEDS: INSULIN ASPART [NOVOLOG] 3 ML PEN SC SCH (01:00)
[2019-05-31] MEDS: ACCU-CHEK XX SCH (02:00)
[2019-05-31] MEDS: OCTREOTIDE 500 MCG in DEXTROSE 5% 49 ML IV SCH (03:26)
[2019-05-31 04:52] VITALS: BP 133/71; PULSE 75; RESP 24
[2019-05-31] MEDS: PANTOPRAZOLE 40 MG INJ IV SCH (06:44)
[2019-05-31 07:50] VITALS: BP 151/80; PULSE 73; RESP 16
[2019-05-31] MEDS ORDERED: INSULIN ASPART [NOVOLOG] 3 ML PEN SC SCH (08:00)
[2019-05-31] MEDS ORDERED: Insulin NOVOLOG SS MILD Algorithm (SS with meals and bedtime) SC SCH (11:30)
[2019-05-31 11:43] VITALS: BP 141/80; PULSE 74; RESP 18
[2019-05-31 15:25] VITALS: BP 135/70; PULSE 83; RESP 18
== END 2019-05-31 19:30 | disposition home or self-care (01) | DRG 432 ==
LOC: E/R 18:38 → 6WM 22:39
PROVIDERS: ADMIT Internal Medicine; ATTEND Internal Medicine
PROC: 06L38CZ Occlusion of Esophageal Vein with Extraluminal Device, Via Natural or Artificial Opening Endoscopic (ICD-10-PCS; principal; 2019-05-30 16:30)
DX: K70.30 Alcoholic cirrhosis of liver without ascites (principal); I85.11 Secondary esophageal varices with bleeding; I86.4 Gastric varices; K29.70 Gastritis, unspecified, without bleeding; D69.6 Thrombocytopenia, unspecified; D64.9 Anemia, unspecified; I10 Essential (primary) hypertension; D50.0 Iron deficiency anemia secondary to blood loss (chronic)
CPT/HCPCS: 36415; 71045; 80053; 82962; 83735; 84100; 84484; 85025; 85610; 85730; 86850; 86900; 86901; 96374; 96375; 96376; C9113; J1815; J2001; J2270; J2354; J2405; J3010; J7030